=== PATIENT | female | born 1950 | race Hispanic/Latino ===

== ENCOUNTER 2016-09-22 14:39 | Outpatient (CLI) | payer MEDICARE ==
--- NOTE | 2016-09-22 15:36 | XRay Report ---
ROUTINE CHEST, TWO VIEWS: HISTORY: Cough. The trachea, heart, mediastinal contour, lung dumont and bony thorax are unremarkable. No significant change since 05/21/15. IMPRESSION: Unremarkable chest x-ray.
== END 2016-09-22 14:40 | disposition home or self-care (01) ==
LOC: SPVIMAG 14:39
PROVIDERS: ATTEND Internal Medicine
DX: R05 Cough (principal)
CPT/HCPCS: 71020